=== PATIENT | male | born 1940 | race Caucasian/White ===

== ENCOUNTER 2018-12-29 19:36 | Inpatient (IN) | payer MEDICARE, BC ==
[~2018-12-29] VITALS: Ht 198.1 cm; Wt 83.4 kg
[2018-12-29 20:21] LABS: BASO % 0.8 % (0.0-2.0); EOS # 0.2 (0.0-0.7); EOS % 4.8 % (0-4.0); GRAN # 2.6 (1.4-6.5); GRAN % 64.6 % (42.2-75.2); LYMPH # 0.7 (1.2-3.4); LYMPH % 16.4 % (20.0-51.0); MEAN CELL VOLUME 87 fl (80.0-100.0); MEAN CORPUSCULAR HGB CONC 29 g/dl (33.0-37.0); MEAN PLATELET VOLUME 8.9 fl (7.4-10.4); MONO # 0.5 (0.1-0.6); MONO % 13.1 % (1.7-9.3); PLATELET COUNT 182 K/mm3 (130-400); RED BLOOD COUNT 3.68 M/mm3 (4.20-5.60); REDCELL DISTRIBUTION WIDTH-CV 17.9 % (11.5-14.5)
[2018-12-29 20:25] LABS: HEMOGLOBIN 9.4 g/dl (13.5-18.0); MEAN CORPUSCULAR HEMOGLOBIN 26 pg (27.0-31.0)
[2018-12-29] MEDS ORDERED: ASPIRIN 81M81 MG/TA2 PO (20:28)
[2018-12-29] MEDS ORDERED: TYLENOL 325MG325 MG PO (20:28)
[2018-12-29] MEDS ORDERED: BACTRIM DS 8001 TAB PO (20:28)
[2018-12-29] MEDS ORDERED: PLAVIX 75MG TAB75 MG PO (20:29)
[2018-12-29] MEDS ORDERED: PROPECIA1 MG PO (20:29)
[2018-12-29] MEDS ORDERED: FERRO-TIME325 MG PO (20:29)
[2018-12-29] MEDS ORDERED: KEPPRA250 MG PO (20:30)
[2018-12-29] MEDS ORDERED: LASIX 40MG TABL40 MG PO (20:30)
[2018-12-29] MEDS ORDERED: SEROQUEL 2525 MG/TAB PO (20:31)
[2018-12-29] MEDS ORDERED: KAPSPARGO SPRIN25 MG (20:31)
[2018-12-29] MEDS ORDERED: SENNA-S 50 MG-81 TAB PO (20:31)
[2018-12-29 20:32] LABS: ALBUMIN 3.6 gm/dL (3.5-5.0); BILIRUBIN,TOTAL 0.8 mg/dL (0.0-1.0); CALCIUM 8.8 mg/dL (8.4-10.2); CREATININE, serum 1.15 (0.66-1.25); POTASSIUM 4.3 mmol/L (3.4-5.0); TOTAL PROTEIN 7.4 gm/dL (6.4-8.2)
[2018-12-29] MEDS ORDERED: ZOCOR 10MG10 MG PO (20:32)
[2018-12-29 22:14] VITALS: BP 133/61; PULSE 70; TEMP 98.5
[2018-12-29 22:24] VITALS: BP 133/61; PULSE 70; TEMP 98.5
[2018-12-29 22:42] LABS: COLLECTION METHOD CLEAN CATCH
[2018-12-29 22:50] LABS: PH 7 (5-8); SQUAMOUS EPITHELIAL None Seen /hpf; URINE APPEARANCE Clear; URINE BACTERIA None Seen /hpf; URINE BILIRUBIN Negative (NEGATIVE); URINE BLOOD Negative (NEGATIVE); URINE COLOR Yellow; URINE GLUCOSE Negative (NEGATIVE); URINE KETONE Negative (NEGATIVE); URINE LEUKOCYTE ESTERASE 2+ (NEGATIVE); URINE NITRATE Negative (NEGATIVE); URINE PROTEIN(semi-quant) Negative (NEGATIVE); URINE UROBILINOGEN Negative (NEGATIVE)
[2018-12-29] MEDS ORDERED: PROSCAR 5MG5 MG PO (23:11)
[2018-12-29] MEDS ORDERED: LOPRESSOR 225 MG/TAB PO (23:17)
[2018-12-30] VITALS (13 sets, daily range): BP systolic 108–130; BP diastolic 50–82; PULSE 68–71; TEMP 97.9–98.6
[2018-12-30 07:23] LABS: BASO % 1.5 % (0.0-2.0); EOS # 0.2 (0.0-0.7); EOS % 6.6 % (0-4.0); GRAN # 1.8 (1.4-6.5); GRAN % 64.5 % (42.2-75.2); LYMPH # 0.4 (1.2-3.4); LYMPH % 14.2 % (20.0-51.0); MEAN CELL VOLUME 87 fl (80.0-100.0); MEAN CORPUSCULAR HGB CONC 30 g/dl (33.0-37.0); MEAN PLATELET VOLUME 9.3 fl (7.4-10.4); MONO # 0.4 (0.1-0.6); MONO % 12.8 % (1.7-9.3); PLATELET COUNT 163 K/mm3 (130-400); RED BLOOD COUNT 3.23 M/mm3 (4.20-5.60); REDCELL DISTRIBUTION WIDTH-CV 18.1 % (11.5-14.5)
[2018-12-30 07:25] LABS: HEMOGLOBIN 8.3 g/dl (13.5-18.0); MEAN CORPUSCULAR HEMOGLOBIN 26 pg (27.0-31.0)
[2018-12-30 07:37] LABS: CALCIUM 8.3 mg/dL (8.4-10.2); CREATININE, serum 1.06 (0.66-1.25); POTASSIUM 3.9 mmol/L (3.4-5.0)
[2018-12-30 11:11] LABS: INR 1.1 (0.8-3.0)
[2018-12-30] MEDS ORDERED: BACTRIM DS 8001 TAB PO (12:52)
[2018-12-30] MEDS ORDERED: DULCOLAX S10 MG/SUPP RC (12:53)
[2018-12-31 00:31] VITALS: BP 109/65; PULSE 70; TEMP 98.1
[2018-12-31 03:51] VITALS: BP 109/59; PULSE 70; TEMP 98.2
[2018-12-31 07:07] LABS: BASO % 0.8 % (0.0-2.0); EOS # 0.2 (0.0-0.7); EOS % 3.9 % (0-4.0); GRAN # 2.7 (1.4-6.5); GRAN % 68.8 % (42.2-75.2); LYMPH # 0.6 (1.2-3.4); LYMPH % 14.4 % (20.0-51.0); MEAN CELL VOLUME 86 fl (80.0-100.0); MEAN CORPUSCULAR HGB CONC 30 g/dl (33.0-37.0); MEAN PLATELET VOLUME 8.7 fl (7.4-10.4); MONO # 0.5 (0.1-0.6); MONO % 11.8 % (1.7-9.3); PLATELET COUNT 170 K/mm3 (130-400); RED BLOOD COUNT 3.29 M/mm3 (4.20-5.60)
[2018-12-31 07:11] LABS: HEMATOCRIT 28.2 % (42.0-52.0); HEMOGLOBIN 8.5 g/dl (13.5-18.0); MEAN CORPUSCULAR HEMOGLOBIN 26 pg (27.0-31.0)
[2018-12-31 07:14] LABS: CALCIUM 8.6 mg/dL (8.4-10.2); CREATININE, serum 0.95 (0.66-1.25); POTASSIUM 4.3 mmol/L (3.4-5.0)
[2018-12-31 07:57] VITALS: BP 116/63; PULSE 70; TEMP 98.5
[2018-12-31 11:37] VITALS: BP 96/42; PULSE 69; TEMP 97.2
[2018-12-31 16:23] VITALS: BP 116/61; PULSE 70; TEMP 98.5
[2018-12-31 21:20] VITALS: BP 118/58; PULSE 89; TEMP 98.9
[2019-01-01] VITALS (7 sets, daily range): BP systolic 98–147; BP diastolic 56–91; PULSE 68–75; TEMP 97.2–98.3
[2019-01-01 08:07] LABS: BASO % 0.8 % (0.0-2.0); EOS # 0.3 (0.0-0.7); EOS % 6.5 % (0-4.0); GRAN # 2.5 (1.4-6.5); LYMPH # 0.6 (1.2-3.4); LYMPH % 14.5 % (20.0-51.0); MEAN CELL VOLUME 86 fl (80.0-100.0); MEAN CORPUSCULAR HGB CONC 30 g/dl (33.0-37.0); MEAN PLATELET VOLUME 8.9 fl (7.4-10.4); MONO # 0.5 (0.1-0.6); MONO % 12.9 % (1.7-9.3); PLATELET COUNT 173 K/mm3 (130-400); RED BLOOD COUNT 3.37 M/mm3 (4.20-5.60); REDCELL DISTRIBUTION WIDTH-CV 17.7 % (11.5-14.5)
[2019-01-01 08:11] LABS: CALCIUM 8.6 mg/dL (8.4-10.2); CREATININE, serum 0.91 (0.66-1.25); HEMATOCRIT 29.1 % (42.0-52.0); HEMOGLOBIN 8.6 g/dl (13.5-18.0); MEAN CORPUSCULAR HEMOGLOBIN 26 pg (27.0-31.0); POTASSIUM 4.3 mmol/L (3.4-5.0)
[2019-01-02 05:27] VITALS: BP 110/71; PULSE 69; TEMP 98.6
[2019-01-02 07:10] VITALS: BP 108/67; PULSE 66; TEMP 97.7
[2019-01-02 12:04] VITALS: BP 108/59; PULSE 68; TEMP 98.3
[2019-01-02] MEDS ORDERED: CIPRO 500MG TA500 MG PO (12:16)
[2019-01-02 14:55] VITALS: BP 108/59; PULSE 68; TEMP 98.3
== END 2019-01-02 15:10 | DRG 711 ==
LOC: COL.ER 19:36 → SURG 21:32
PROVIDERS: Emergency Medicine; Hospitalist; Nurse Practitioner; Physician Assistant; Urology; ADMIT Internal Medicine
PROC: 0VT90ZZ Resection of Right Testis, Open Approach (ICD-10-PCS; principal; 2018-12-30 09:30)
DX: N45.3 Epididymo-orchitis (principal); E43 Unspecified severe protein-calorie malnutrition; N39.0 Urinary tract infection, site not specified; B96.89 Other specified bacterial agents as the cause of diseases classified elsewhere; K40.90 Unilateral inguinal hernia, without obstruction or gangrene, not specified as recurrent; F03.90 Unspecified dementia, unspecified severity, without behavioral disturbance, psychotic disturbance, mood disturbance, and anxiety; I25.10 Atherosclerotic heart disease of native coronary artery without angina pectoris; Z95.5 Presence of coronary angioplasty implant and graft; I10 Essential (primary) hypertension; G40.909 Epilepsy, unspecified, not intractable, without status epilepticus; I48.2 Chronic atrial fibrillation; Z95.0 Presence of cardiac pacemaker; Z88.5 Allergy status to narcotic agent; Z88.2 Allergy status to sulfonamides; Z91.040 Latex allergy status; Z68.20 Body mass index [BMI] 20.0-20.9, adult
CPT/HCPCS: 99222-AI; 99231-AI; 99232-AI; 99239; A4314; J0330; J0690; J0696; J2405; J2550; J2704; J3010; J7030; J7050

== ENCOUNTER 2019-01-13 13:26 | Emergency (ER) | payer MEDICARE, BC ==
[~2019-01-13] VITALS: Ht 190.5 cm; Wt 82.3 kg
[~2019-01-13 13:26] MED LIST: ASPIRIN 81M81 MG/TA2 PO; BACTRIM DS 8001 TAB PO; CIPRO 500MG TA500 MG PO; DULCOLAX S10 MG/SUPP RC; FERRO-TIME325 MG PO; KAPSPARGO SPRIN25 MG; KEPPRA250 MG PO; LASIX 40MG TABL40 MG PO; LOPRESSOR 225 MG/TAB PO; PLAVIX 75MG TAB75 MG PO; PROPECIA1 MG PO; PROSCAR 5MG5 MG PO; SENNA-S 50 MG-81 TAB PO; SEROQUEL 2525 MG/TAB PO; TYLENOL 325MG325 MG PO; ZOCOR 10MG10 MG PO
[2019-01-13 13:40] VITALS: BP 127/73; TEMP 96.9
[2019-01-13 15:09] VITALS: PULSE 70
== END 2019-01-13 15:10 | disposition home or self-care (01) ==
LOC: COL.ER 13:26
DX: R04.0 Epistaxis (principal); I10 Essential (primary) hypertension; I25.10 Atherosclerotic heart disease of native coronary artery without angina pectoris; G40.909 Epilepsy, unspecified, not intractable, without status epilepticus; I48.91 Unspecified atrial fibrillation; Z79.82 Long term (current) use of aspirin; Z79.02 Long term (current) use of antithrombotics/antiplatelets